=== PATIENT | male | born 1975 | race Caucasian/White ===

== ENCOUNTER 2020-07-12 09:18 | Outpatient (CLI) | payer BC, SELFPAY ==
--- NOTE | 2020-07-12 09:30 | XR_ITS ---
WS: [id number] ABDOMEN 1 VIEW(S) HISTORY: ureterolithiasis COMPARISON: 05/04/2019 Normal bowel gas pattern. No suspicious calcifications or masses. Mild bilateral hip joint arthritis. Enthesopathy RIGHT iliac crest. XR/XR KUB [id number] IMPRESSION: Normal abdomen. No ureteral or renal calcifications identified.
== END 2020-07-12 09:19 | disposition home or self-care (01) ==
LOC: RADWPI 09:24
PROVIDERS: PCP Family Medicine; Visit Provider Urology
DX: N20.1 Calculus of ureter (principal)
CPT/HCPCS: 74018

== ENCOUNTER 2021-01-10 12:27 | Outpatient (CLI) | payer BC, SELFPAY ==
[2021-01-10 12:40] VITALS: BP 147/89; PULSE 118; RESP 14; TEMP 36.7; O2SAT 96
[2021-01-10 14:27] VITALS: BP 135/81; PULSE 101; RESP 16; TEMP 36.9; O2SAT 98
== END 2021-01-10 12:28 | disposition home or self-care (01) ==
PROVIDERS: PCP Family Medicine; Visit Provider Nurse Practitioner Family
DX: U07.1 COVID-19 (principal)
CPT/HCPCS: 96365

== ENCOUNTER 2022-03-27 15:05 | Outpatient (CLI) | payer BC, SELFPAY ==
--- NOTE | 2022-03-27 16:00 | MR_ITS ---
WS: [id number] MRI RIGHT SHOULDER NONCONTRAST TECHNIQUE: Sagittal T2, coronal T1, T2 and proton density imaging. Axial gradient PDE imaging. CLINICAL INFORMATION: pain COMPARISON: None. FINDINGS: Mild degenerative arthritis AC joint with edema. Slight subacromial spurring. Small amount of subacro mial/subdeltoid fluid.Chronic thinning of the distal supraspinatus with intrasubstance and undersurfa ce teasr. Tendinopathy in the distal supraspinatus. No tendon retraction. Infraspinatus is intact. Normal teres minor. Normal subscapularis. Normal biceps tendon in the bicipi kiana groove. Normal intra-articular biceps tendon. Glenoid labrum appears grossly intact with degenerative fraying. Biceps labral anchor appears intact. MR/MR shoulder RT wo con* [id number] IMPRESSION: 1. Mild degenerative arthritis AC joint with mild edema and slight subacromial spurring. Small amount of subacromial/subdeltoid fluid. 2. Small intrasubstance and undersurface tears distal supraspinatus with tendi nopathy. Chronic thinning of the supraspinatus. 3. Rotator cuff is otherwise normal. 4. Normal biceps tendon in the bicipital groove. Normal intra-articular biceps tendon. 5. No other suspicious findings.
== END 2022-03-27 15:06 | disposition home or self-care (01) ==
PROVIDERS: PCP Family Medicine; Visit Provider Nurse Practitioner
DX: M25.511 Pain in right shoulder (principal); M19.011 Primary osteoarthritis, right shoulder; M75.81 Other shoulder lesions, right shoulder; M75.101 Unspecified rotator cuff tear or rupture of right shoulder, not specified as traumatic
CPT/HCPCS: 73221